=== PATIENT | female | born 1985 | race Caucasian/White ===

== ENCOUNTER 2019-11-12 16:11 | Emergency (ER) | payer OTHER ==
[~2019-11-12] VITALS: Ht 167.6 cm; Wt 97.5 kg
== END 2019-11-12 17:37 | disposition home or self-care (01) ==
LOC: ED 16:11
DX: S43.402A Unspecified sprain of left shoulder joint, initial encounter (principal); X58.XXXA Exposure to other specified factors, initial encounter
CPT/HCPCS: 73030; 99283-25; A9270